=== PATIENT | female | born 1955 | race Caucasian/White ===

== ENCOUNTER → 2023-04-29 15:51 | Outpatient (BNVA) | payer MEDICARE, SELFPAY | PROVIDERS: Visit Provider Otolaryngology | DX: K11.7 Disturbances of salivary secretion (principal) | CPT/HCPCS: 99204 ==

== ENCOUNTER → 2023-06-03 13:04 | Outpatient (BNVA) | payer MEDICARE, SELFPAY | PROVIDERS: Visit Provider Otolaryngology | DX: K11.7 Disturbances of salivary secretion (principal); M26.623 Arthralgia of bilateral temporomandibular joint | CPT/HCPCS: 99213 ==

== ENCOUNTER → 2023-07-01 12:55 | Outpatient (BNVA) | payer MEDICARE, SELFPAY | PROVIDERS: Visit Provider Otolaryngology | DX: K11.7 Disturbances of salivary secretion (principal) | CPT/HCPCS: 99213 ==